=== PATIENT | male | born 1975 | race Caucasian/White ===

== ENCOUNTER 2018-05-20 02:11 | Outpatient (CLI) | payer BC, SELFPAY ==
[2018-05-20 11:05] LABS: Hemoglobin A1C 5.9 % (4.5-6.2)
[2018-05-20 11:15] LABS: ALT 42 U/L (12-78); AST 27 U/L (15-37); Albumin 3.6 g/dL (3.4-5.0); Alkaline Phosphatase 104 U/L (46-116); Anion Gap 7.9 mmol/L (3-11); BUN 24 mg/dL (7-18); Bilirubin, Total 0.4 mg/dL (0.2-1.0); CO2 26.1 mmol/L (21.0-32.0); CREATININE 1.03 mg/dL (0.70-1.30); Calcium 8.8 mg/dL (8.5-10.1); Chloride 106 mmol/L (98-107); Cholesterol 177 mg/dL (50-200); Glucose 108 mg/dL (70-100); HDL Cholesterol 44 mg/dL (40-60); LDL CHOLESTEROL 120 mg/dL (<100); Potassium 4.4 mmol/L (3.5-5.1); Sodium 140 mmol/L (136-145); Total Protein 6.8 g/dL (6.4-8.2); Triglyceride 65 mg/dL (30-150)
[2018-05-21 10:22] LABS: PSA, Screening 0.9 ng/ml (0-2.5)
== END 2018-05-20 02:31 ==
PROVIDERS: PCP Family Medicine; Visit Provider Family Medicine
DX: Z00.00 Encounter for general adult medical examination without abnormal findings (principal); N13.8 Other obstructive and reflux uropathy; N40.1 Benign prostatic hyperplasia with lower urinary tract symptoms; Z12.5 Encounter for screening for malignant neoplasm of prostate; Z80.42 Family history of malignant neoplasm of prostate; Z83.3 Family history of diabetes mellitus
CPT/HCPCS: 36415; 80053; 80061; 83721; 84153; 83036

== ENCOUNTER 2019-06-28 09:53 | Outpatient (CLI) | payer BC, SELFPAY ==
[2019-06-28 12:47] LABS: ALT 37 U/L (16-63); AST 20 U/L (15-37); Alkaline Phosphatase 106 U/L (46-116); Anion Gap 11.2 mmol/L (3-11); BUN 19 mg/dL (7-18); Bilirubin, Total 0.2 mg/dL (0.2-1.0); CO2 25.8 mmol/L (21.0-32.0); Calcium 8.9 mg/dL (8.5-10.1); Chloride 107 mmol/L (98-107); Glucose 94 mg/dL (74-106); Potassium 4.2 mmol/L (3.5-5.1); Sodium 144 mmol/L (136-145)
[2019-06-28 16:47] LABS: Hemoglobin A1C 5.6 % (3.8-5.6)
== END 2019-06-28 10:13 ==
PROVIDERS: PCP Family Medicine; Visit Provider Family Medicine
DX: Z00.00 Encounter for general adult medical examination without abnormal findings (principal); Z13.1 Encounter for screening for diabetes mellitus; Z83.3 Family history of diabetes mellitus; Z12.5 Encounter for screening for malignant neoplasm of prostate; Z80.42 Family history of malignant neoplasm of prostate
CPT/HCPCS: 36415; 80053; 84153; 83036

== ENCOUNTER 2020-07-10 04:25 | Outpatient (CLI) | payer BC, SELFPAY ==
[2020-07-10 08:19] LABS: Calculated LDL 134 mg/dL (<100); Cholesterol 198 mg/dL (<200); HDL Cholesterol 42 mg/dL (40-60); Triglyceride 113 mg/dL (<150)
[2020-07-10 08:20] LABS: Hemoglobin A1C 5.9 % (<5.7)
== END 2020-07-10 04:26 | disposition home or self-care (01) ==
LOC: LBO 04:25
PROVIDERS: PCP Nurse Practitioner Family; Visit Provider Nurse Practitioner Family
DX: Z13.220 Encounter for screening for lipoid disorders (principal); Z13.1 Encounter for screening for diabetes mellitus; Z12.5 Encounter for screening for malignant neoplasm of prostate
CPT/HCPCS: 36415; 80061; 84153; 83036

== ENCOUNTER 2021-07-10 04:16 | Outpatient (CLI) | payer BC, SELFPAY ==
[2021-07-10 07:48] LABS: Hemoglobin A1C 5.8 % (<5.7)
[2021-07-10 19:54] LABS: PSA, Screening 1.1 ng/mL (0.0-2.5)
== END 2021-07-10 04:17 | disposition home or self-care (01) ==
PROVIDERS: PCP Nurse Practitioner Family; Visit Provider Nurse Practitioner Family
DX: Z13.1 Encounter for screening for diabetes mellitus (principal); Z12.5 Encounter for screening for malignant neoplasm of prostate
CPT/HCPCS: 36415; 84153; 83036

== ENCOUNTER 2022-07-15 03:09 | Outpatient (CLI) | payer BC, SELFPAY ==
[2022-07-15 14:24] LABS: Hemoglobin A1C 5.7 % (<5.7)
[2022-07-15 22:53] LABS: PSA, Screening 1.1 ng/mL (<=2.5)
== END 2022-07-15 03:10 | disposition home or self-care (01) ==
LOC: LOS 03:09
PROVIDERS: PCP Nurse Practitioner Family; Visit Provider Nurse Practitioner Family
DX: Z13.1 Encounter for screening for diabetes mellitus (principal); Z12.5 Encounter for screening for malignant neoplasm of prostate
CPT/HCPCS: 36415; 84153; 83036

== ENCOUNTER 2022-10-16 10:32 | Outpatient (CLI) | payer BC, SELFPAY ==
[2022-10-16 12:33] LABS: Abs Immature Grans 0.03 10^3/uL (0.0-0.06); Absolute Basophil Count 0.03 10^3/uL (0.0-0.2); Absolute Eosinophil Count 0.28 10^3/uL (0.0-0.7); Absolute Lymphocyte Count 1.49 10^3/uL (1.2-3.4); Absolute Monocyte Count 0.62 10^3/uL (0.1-0.8); Absolute Neutrophil Count 5.48 10^3/uL (1.2-6.7); Basophils % 0.4; Eosinophils % 3.5; HGB 14.6 g/dL (13.5-17.5); Immature Grans % 0.4; Lymphocytes % 18.8; MCH 30.3 pg (27.0-33.0); MCV 89 fL (80-95); MPV 10.4 fL (8.0-11.0); Monocytes % 7.8; Neutrophils % 69.1; Platelet Count 219 10^3/uL (130-400); RBC 4.82 10^6/uL (4.36-5.78); RDW 12.5 % (11.8-14.1); WBC 7.93 10^3/uL (4.4-10.8)
[2022-10-16 12:51] LABS: ALT 41 U/L (16-63); AST 20 U/L (15-37); Albumin 3.8 g/dL (3.4-5.0); Alkaline Phosphatase 102 U/L (46-116); Anion Gap 8.4 mmol/L (3-11); BUN 13 mg/dL (7-18); Bilirubin, Total 0.4 mg/dL (0.2-1.0); CO2 25.6 mmol/L (21.0-32.0); Calcium 9.1 mg/dL (8.5-10.1); Chloride 105 mmol/L (98-107); Estimated GFR 92.26 (mL/min/1.73m2); Glucose 106 mg/dL (74-106); Potassium 3.6 mmol/L (3.5-5.1); Sodium 139 mmol/L (136-145); Total Protein 7.8 g/dL (6.4-8.2)
[2022-10-17 10:44] LABS: Lyme Ab w Rflx to Lyme Confirm Negative (Negative)
[2022-10-22 13:49] LABS: Anaplasma phagocytophilum Negative (Negative); B. miyamotoi PCR Negative (Negative); Babesia divergens/MO-1 Negative (Negative); Babesia duncani Negative (Negative); Babesia microti Negative (Negative); Ehrlichia chaffeensis Negative (Negative); Ehrlichia ewingii/canis Negative (Negative); Ehrlichia muris eauclairensis Negative (Negative)
== END 2022-10-16 10:33 | disposition home or self-care (01) ==
LOC: LOS 10:33
PROVIDERS: PCP Nurse Practitioner Family; Visit Provider Nurse Practitioner Family
DX: R21 Rash and other nonspecific skin eruption (principal); R50.9 Fever, unspecified
CPT/HCPCS: 36415; 80053; 87798; 85025; 86618

== ENCOUNTER 2022-11-01 08:04 | Day surgery (SDC) | payer BC, SELFPAY ==
--- NOTE | 2022-10-31 20:20 | PDOC.DSDIS_ITS ---
Date of service: 11/01/22 Time of Service: 10:34 Discharge Plan Disposition Patient Disposition: Home Condition: Good Discharge Details Reason For Visit: colon scope Attending Provider: Tg Bateman Primary Care Provider: Dave Gonzalez Home Meds and New Rx's Prescriptions: Continued multivitamin capsule 1 cap PO DAILY ibuprofen 600 MG tablet 600 mg PO PRN PRN Discontinued bisacodyl [Dulcolax (bisacodyl)] 5 mg tablet,delayed release (DR/EC) 5 mg PO ONCE Qty: 4 0RF Rx Instructions: Take per colonoscopy instructions provided by ordering providers office polyethylene glycol 3350 17 gram/dose powder 17 g PO ONCE Qty: 238 0RF Rx Instructions: Take per colonoscopy instructions provided by ordering providers office Discharge Instructions Additional Instructions: [facility] Colonoscopy Post- Op Instructions Instructions for Everyone who is given Anesthesia: For your safety, please do the following for the next twenty-four (24) hours: *Do Not operate a motor vehicle (car, truck, motorcycle, etc.) *Do Not drink alcoholic beverages or use any recreational drugs for the first 24 hours or while taking pain medications. The medications in your body may have a reaction that can be dangerous. *Do Not make any important decisions or sign any important papers. Findings: external hemorrhoids Otherwise normal. -Make sure you are moving your bowels on a regular basis and avoiding straining. Follow up: Repeat in 10 years time. 1. No lifting over 20 pounds or strenuous activity for the first 24 hours after your procedure. After 24 hours there are no restrictions on your activity but you may feel fatigued for a few days. 2. After you arrive home you may have a light meal and return to your normal diet as you can tolerate it without feeling sick to your stomach. 3. You may have a bloated, gaseous feeling in your belly (abdomen) after a colonoscopy. Passing gas and belching will help. Walking or lying down on your left side with your knees flexed may relieve the discomfort. Call the office at [phone] (Office) or [phone] (Hospital) right away if you notice any of the following: a.Vomiting of blood or ?coffee ground stools?. b.Rectal bleeding 1Tbsp, blood clots or continuous bleeding. c.Severe belly (abdominal) pain. d.A hard distended belly (abdomen) and an inability to pass gas. 4. Please don?t expect to have a normal BM (bowel movement) for 2-3 days after your procedure. 5. If there are questions regarding the findings of your procedure, please contact your doctor 6. If you are unable to contact your doctor with a problem, contact the hospital at [phone]. 7. Continue all your regular medications unless directed otherwise. I understand the above instructions and have no questions. Signature of Patient or Adult Escort Name of Responsible Adult Escort Signature of Nurse Date/Time Stand Alone Forms: Anesthesia Discharge Inst., Laura Bernabe ([facility]) Activity:: see above Diet:: see above Discharge Orders Discharge Orders: Discharge Order (Routine); Ordered 11/01/22 Ordered By: Tg Bateman DS: Diagnosis Discharge Diagnosis (1) Screening for malignant neoplasm of colon performed: Status: Acute Asessment and Plan: The patient is seen and examined after their colonoscopy.? The patient has been able to pass gas.? They are not having abdominal pain.? They have been able to tolerate liquids and a snack.? They do not have any nausea or vomiting.? They are not having any chest pain or shortness of breath.??? They are not having any rectal bleeding. Their vital signs have been stable-see nursing notes. We discussed findings during their colonoscopy, and any biopsies that were done/polyps that were removed. The patient will be sent a letter with any biopsy results, and when to repeat the colonoscopy.-see discharge instructions. Patient was given explicit instructions to follow-up regarding colonoscopy-refer to discharge instructions.? We reviewed resumption of medications.Patient verbalized understanding and discharged in stable and satisfactory condition- See nursing notes (2) Rash and other nonspecific skin eruption: Status: Acute (3) Prediabetes: Status: Acute (4) Overweight: Status: Acute (5) Essential tremor: Status: Acute
--- NOTE | 2022-10-31 20:20 | W.COLOREPORT ---
Date of service: 11/01/22 Time of Service: 10:00 Colonoscopy Report Date of procedure: 11/01/22 Pre-op diagnosis general: CRC screening Post-op diagnosis procedure note: other (ext hemorrhoids) Surgeon: Tg Bateman Anesthesia Type: General:No Airway Estimated blood loss (mL): 0 Pathology: none sent Complications: None Disposition: same day Prep: Miralax/Dulcolax Retraction Time: 7 Procedure Description: After informed consent was obtained the patient was taken to the procedure room and placed in a left decubitous position. Monitors were applied and a time out was done. The patients name, date of , procedure, allergies to medications and metal in their body was reviewed. The patient was then sedated. Once sedated and comfortable a rectal exam was done. External exam was normal. Internal exam revealed a normal sphincter tone and no palpable masses. The prostate normal The scope was then introduced and retrofelexed. No internal hemorrhoids were identified. The scope was then advanced to the cecum w/out difficulty. The TI and appendiceal orifice were identified. The prep was BBPS 3 in all segments for total of 9. the scope was then slowly retracted over 7 minutes back into the rectum. There are no polyps, AVMs, or diverticula visualized today. The mucosa is pink and healthy with a normal pattern.. The scope was removed and the patient was woken up and taken back to Same day surgery in stable condition. The patient tolerated the procedure well and there were no immediate complications. Follow up: The patient should follow up in 10 years unless they develop changes in bowel habits or other new gastrointestinal complaints.
[2022-11-01 08:18] VITALS: BP 136/96; PULSE 73; RESP 16; TEMP 36.4; O2SAT 96
[2022-11-01] MEDS: Lactated Ringers 1,000 ML 80 ML IV (08:44)
--- NOTE | 2022-11-01 08:49 | ANES.PREOP_ITS ---
General Info Date of Service Date Performed: 11/01/22 Height: 5 ft 5.5 in Weight: 85.1 kg Body Mass Index (BMI): 30.7 Surgical Procedure: Operation Date: 11/01/22 09:05 Proposed Procedure Side Surgeon elijah Bateman, DO Meds Allergies and Home Medications Allergies Allergy/AdvReac Type Severity Reaction Status Date / Time No Known Allergies Allergy Verified 11/01/22 08:16 Home Medication Medication Instructions Recorded ibuprofen 600 mg tablet 600 mg PO PRN PRN 03/15/15 multivitamin 1 cap PO DAILY 11/10/18 Current Visit Medications: Current Medications Generic Name Dose Route Start Last Admin Trade Name Freq PRN Reason Stop Dose Admin Hyoscyamine Sulfate 0.125 mg 11/01/22 10:32 Hyoscyamine 0.125 Mg Sl/Oral/Chew SL 12/01/22 10:31 DIRECTED PRN Ringer's Solution 1,000 mls @ 80 mls/hr 11/01/22 06:00 11/01/22 08:44 IV 11/30/22 23:59 80 mls/hr INFUSION DAVID Administration IV Miscellaneous Supplies 1 each 11/01/22 06:00 Iv Access IV 11/30/22 23:59 DIRECTED DAVID Ondansetron HCl 4 mg 11/01/22 10:32 Ondansetron 4 Mg/2 Ml Vial IVP 12/01/22 10:31 Q4H PRN PRN Nausea / Vomiting Sodium Chloride 0 ml 11/01/22 06:00 Normal Saline Flush 10 Ml Syr IV 11/30/22 23:59 PRN PRN Sodium Chloride 0 ml 11/01/22 06:00 Normal Saline 10 Ml Vial IJ 11/30/22 23:59 DIRECTED PRN Sterile Water 0 ml 11/01/22 06:00 Water,Injection,Sterile 10 Ml Vial IJ 11/30/22 23:59 DIRECTED PRN PFSH Active Problems Active Problems: Problem Status Onset Code Screening for malignant neoplasm of colon performed Z12.11 Rash and other nonspecific skin eruption R21 Prediabetes R73.03 Overweight E66.3 Essential tremor G25.0 Discoloration of skin of lower leg 07/01/16 L81.9 Family history of diabetes mellitus 02/17/15 Z83.3 Family history of prostate cancer in father 02/17/15 Z80.42 Inguinal hernia, right K40.90 Surgical History Surgical History Repair of inguinal hernia (~1999) RIGHT Status post vasectomy Vasectomy (~2002) Tobacco Smoking/Tobacco Use Status: Former Tobacco Use Passive smoking exposure: Yes Second hand exposure: Yes Alcohol Alcohol Intake: current Alcohol intake frequency: a few times a month Alcohol type: beer Substance Use Substance use: Never Substance use type: does not use Vital Signs and Lab Results Vital Signs Most Recent Vital Signs in EMR: Most Recent Vital Signs Temp Pulse Resp BP Pulse Ox 36.4 C L 73 16 136/96 H 96 11/01/22 08:18 11/01/22 08:18 11/01/22 08:18 11/01/22 08:18 11/01/22 08:18 Lab Results Blood Type / Crossmatch: No Data to Display Complete Blood Count: White Blood Count 7.93 10^3/uL (4.4-10.8) 10/16/22 10:41 Red Blood Count 4.82 10^6/uL (4.36-5.78) 10/16/22 10:41 Hemoglobin 14.6 g/dL (13.5-17.5) 10/16/22 10:41 Hematocrit 43.0 % (40.0-50.0) 10/16/22 10:41 Platelet Count 219 10^3/uL (130-400) 10/16/22 10:41 Complete Metabolic Panel: Sodium 139 mmol/L (136-145) 10/16/22 10:41 Potassium 3.6 mmol/L (3.5-5.1) 10/16/22 10:41 Chloride 105 mmol/L (98-107) 10/16/22 10:41 Carbon Dioxide 25.6 mmol/L (21.0-32.0) 10/16/22 10:41 BUN 13 mg/dL (7-18) 10/16/22 10:41 Creatinine 1.0 mg/dL (0.70-1.30) 10/16/22 10:41 Est GFR (CKD-EPI 2020) 92.26 (mL/min/1.73m2) 10/16/22 10:41 Calcium 9.1 mg/dL (8.5-10.1) 10/16/22 10:41 Albumin 3.8 g/dL (3.4-5.0) 10/16/22 10:41 Glucose 106 mg/dL (74-106) 10/16/22 10:41 Liver Function Panel: Alanine Aminotransferase (ALT/SGPT) 41 U/L (16-63) 10/16/22 10: 41 Aspartate Amino Transf (AST/SGOT) 20 U/L (15-37) 10/16/22 10:41 Coagulation Panel: No Data to Display Cardiac Panel: No Data to Display Arterial Blood Gas: No Data to Display Venous Blood Gas: No Data to Display Pancreas Panel: No Data to Display Thyroid Panel: No Data to Display Infectious Disease: No Data to Display Blood Cultures: No Data to Display Toxicology Panel: No Data to Display Anesthesia Assessment and Plan Anesthesia History Personal History: No History of Anesthesia Complications Family History: No Family History of Anesthesia Complications Exercise Tolerance Exercise Tolerance: Metabolic Equivalents>4 Pertinent Negatives Pertinent Negatives: No Symptoms of GERD, No Major Cardiovascular Symptoms or Complaints and No Major Pulmonary Symptoms or Complaints Cardiac & Pulmonary Exam Cardiac Exam: Normal S1/S2 Heart Sounds Pulmonary Exam: Clear Bilateral Breath Sounds Implantable Cardiac Device Does patient have a Pacemaker or an ICD?: No Airway Exam Known Difficult Airway: No Mallampati Class: 1 Mouth Opening: Normal (> 3cm) Thyromental Distance: Greater than 3 cm Neck Range of Motion: Full ROM Neck Circumference: Normal Teeth Condition: Normal Dentition ASA Classification ASA Score: ASA 2 Emergency Case?: No NPO Status NPO Status: NPO Clears >2 hours, Solids >8 hours Anesthesia Plan Resuscitation Status: Full Code Anesthesia Technique: General Anesthesia Airway Planned: Natural Airway Monitors Used: Standard Monitors
[2022-11-01 08:52] VITALS: BMI 30.7
[2022-11-01 09:48] VITALS: BP 134/91; PULSE 76; RESP 16; TEMP 36; O2SAT 96
--- NOTE | 2022-11-01 09:56 | W.ANESPOSTOP ---
Postoperative Evaluation Date, Time and Location Date Performed: 11/01/22 Time Performed: 09:50 Patient Location: Day Surgery Unit Vital Signs Most Recent Imported Vital Signs: Most Recent Vital Signs Temp Pulse Resp BP Pulse Ox 36 C L 76 16 134/91 H 96 11/01/22 09:48 11/01/22 09:48 11/01/22 09:48 11/01/22 09:48 11/01/22 09:48 Pain Score Most Recent Pain Score: Most Recent Pain Score Pain Level 0 11/01/22 09:48 Assessment Mental Status: Awake (Alert & Oriented to Patient Baseline) Airway and Respiratory Function: Patent airway with normal (patient baseline) respiratory exam Cardiovascular Function: Hemodynamically Stable Hydration Status: Adequately Hydrated Nausea & Vomiting: No Nausea or Vomiting Pain: Pt. Denies Any Pain Peripheral Nerve Block: Patient did not receive a nerve block
[2022-11-01 10:14] VITALS: BP 131/77; PULSE 61; RESP 16; TEMP 36; O2SAT 96
== END 2022-11-01 10:40 | disposition home or self-care (01) ==
PROVIDERS: PCP Nurse Practitioner Family; Visit Provider Surgery
PROC: 0DJD8ZZ Inspection of Lower Intestinal Tract, Via Natural or Artificial Opening Endoscopic (ICD-10-PCS; CPT 45378; principal; 2022-11-01 09:00)
DX: Z12.11 Encounter for screening for malignant neoplasm of colon (principal); R73.03 Prediabetes; K64.4 Residual hemorrhoidal skin tags
CPT/HCPCS: 45378; J2001

== ENCOUNTER 2023-07-09 09:05 | Outpatient (CLI) | payer BC, SELFPAY ==
[2023-07-09 09:47] LABS: Calculated LDL 105 mg/dL (<100); Cholesterol 162 mg/dL (<200); HDL Cholesterol 44 mg/dL (40-60); Triglyceride 68 mg/dL (<150)
[2023-07-09 10:54] LABS: Hemoglobin A1C 5.6 % (<5.7)
== END 2023-07-09 09:06 | disposition home or self-care (01) ==
LOC: LBO 09:06
PROVIDERS: PCP Nurse Practitioner Family; Visit Provider Nurse Practitioner Family
DX: R73.03 Prediabetes (principal); E66.3 Overweight; Z12.5 Encounter for screening for malignant neoplasm of prostate
CPT/HCPCS: 36415; 80061; 84153; 83036

== ENCOUNTER 2024-07-09 08:30 | Outpatient (CLI) | payer BC, SELFPAY ==
[2024-07-09 12:31] LABS: Hemoglobin A1C 5.7 % (<5.7)
[2024-07-09 12:32] LABS: Calculated LDL 105 mg/dL (<100); Cholesterol 172 mg/dL (<200); HDL Cholesterol 44 mg/dL (>or=40); Triglyceride 116 mg/dL (<150)
== END 2024-07-09 08:31 | disposition home or self-care (01) ==
LOC: LOS 08:30
PROVIDERS: PCP Nurse Practitioner Family; Referring Provider Nurse Practitioner Family; Visit Provider Nurse Practitioner Family
DX: Z13.1 Encounter for screening for diabetes mellitus (principal); Z13.220 Encounter for screening for lipoid disorders; R73.03 Prediabetes; R03.0 Elevated blood-pressure reading, without diagnosis of hypertension
CPT/HCPCS: 36415; 80061; 83036